=== PATIENT | male | born 1975 | race Two or more races ===

== ENCOUNTER 2020-08-12 11:12 | Emergency (ER) | payer OTHER ==
[~2020-08-12] VITALS: Ht 175.3 cm; Wt 99.8 kg
[2020-08-12 12:42] VITALS: BP 112/79
== END 2020-08-12 13:53 | disposition home or self-care (01) ==
LOC: ER 11:12
DX: M10.9 Gout, unspecified (principal); E11.9 Type 2 diabetes mellitus without complications

== ENCOUNTER → 2021-06-19 | Emergency (ER) | payer OTHER ==
[~2021-06-19] VITALS: Ht 175.3 cm; Wt 106.6 kg
[~2021-06-19] MED LIST: KETOROLAC TROMETH 60MG/2ML VIAL IM ONE; METH750T22 PO; TRAM-297 PO
[2021-06-19 17:59] VITALS: BP 128/97
== END | disposition home or self-care (01) ==
LOC: ER 16:54
DX: S39.012A Strain of muscle, fascia and tendon of lower back, initial encounter (principal); E11.9 Type 2 diabetes mellitus without complications; I10 Essential (primary) hypertension; M10.9 Gout, unspecified; M19.90 Unspecified osteoarthritis, unspecified site; W19.XXXA Unspecified fall, initial encounter; Y93.89 Activity, other specified; Y92.89 Other specified places as the place of occurrence of the external cause; Y99.8 Other external cause status
CPT/HCPCS: 72100; 96372; 99283; J1885